=== PATIENT | female | born 1995 | race Caucasian/White ===

== ENCOUNTER 2022-09-13 17:09 | Inpatient (IN) | payer BC ==
[2022-09-13] MEDS ORDERED: Sodium Chloride 0.9% 10 ML Syringe FLUSH PRN ×2 (18:07→18:18)
[2022-09-13] MEDS ORDERED: Lactated Ringers 1,000 ML IV SCH ×2 (18:15→18:30)
[2022-09-13] MEDS ORDERED: Nalbuphine 10 MG/0.5 ML Syringe IVPUSH PRN (18:18)
[2022-09-13] MEDS ORDERED: Misoprostol 25 MCG (1/4 of 100 MCG) Tab PO ONE (19:20)
[2022-09-13] MEDS ORDERED: Oxytocin/Lactated Ringers 10 UNIT/1,000 ML BAG IV SCH (23:30)
[2022-09-14] MEDS ORDERED: Ropivacaine 0.2% PF 2 MG/ML 20 ML SDV ONE
[2022-09-14] MEDS: Ondansetron 4 MG/2 ML SDV IVPUSH PRN ×2 (07:04→18:55)
[2022-09-14] MEDS: Sodium Chloride 0.9% 10 ML Syringe FLUSH SCH ×2 (07:22→10:41)
[2022-09-14] MEDS ORDERED: fentaNYL 100 MCG/2 ML SDV EPIDUR PRN (07:48)
[2022-09-14] MEDS ORDERED: ePHEDrine 50 MG/ML SDV IVPUSH PRN ×2 (07:48→21:40)
[2022-09-14] MEDS ORDERED: diphenhydrAMINE 50 MG/ML SDV IVPUSH PRN ×3 (07:48→21:40)
[2022-09-14] MEDS: Bupivacaine/fentaNYL/NS 100 ML Bag EPIDUR PRN ×2 (07:53→13:18)
[2022-09-14] MEDS ORDERED: Ampicillin 2 GM in Sodium Chloride 0.9% 100 ML IV SCH (18:30)
[2022-09-14] MEDS ORDERED: Morphine PF 1 MG/ML Amp ONE (19:09)
[2022-09-14] MEDS ORDERED: Phenylephrine 1% 10 MG/ML SDV ONE (19:09)
[2022-09-14] MEDS ORDERED: Oxytocin 10 Units/1 ML SDV ONE ×2 (19:09→19:50)
[2022-09-14] MEDS ORDERED: Ondansetron 4 MG/2 ML SDV ONE (19:09)
[2022-09-14] MEDS ORDERED: Carboprost Tromethamine 250 MCG/1 ML Amp ONE (19:26)
[2022-09-14] MEDS ORDERED: Clindamycin Phosphate in D5W 900 MG in Premix Bag 1 BAG IV SCH ×2 (19:30)
[2022-09-14] MEDS ORDERED: Misoprostol 200 MCG Tab ONE (20:00)
[2022-09-14] MEDS ORDERED: Ondansetron 4 MG/2 ML SDV IVPUSH PRN (20:15)
[2022-09-14] MEDS ORDERED: Meperidine 50 MG/ML Vial IVPUSH PRN (20:15)
[2022-09-14] MEDS ORDERED: fentaNYL 100 MCG/2 ML SDV IVPUSH PRN (20:15)
[2022-09-14] MEDS ORDERED: Ketorolac 30 MG/ML SDV IVPUSH ONE (20:16)
[2022-09-14] MEDS ORDERED: Docusate Sodium 100 MG Cap PO PRN (21:40)
[2022-09-14] MEDS ORDERED: Dextrose 5%-Lactated Ringers 1,000 ML IV SCH (21:40)
[2022-09-14] MEDS ORDERED: Naloxone 0.4 MG/ML SDV IVPUSH PRN (21:40)
[2022-09-14] MEDS ORDERED: Acetaminophen/oxyCODONE 325-5 MG Tab PO PRN (21:40)
[2022-09-14] MEDS ORDERED: Ondansetron 4 MG/2 ML SDV IV PRN (21:40)
[2022-09-15] MEDS: Ampicillin 2 GM in Sodium Chloride 0.9% 100 ML IV SCH ×3 (00:29→12:32)
[2022-09-15] MEDS ORDERED: Ketorolac 30 MG/ML SDV IVPUSH SCH (02:00)
[2022-09-15] MEDS: Ketorolac 30 MG/ML SDV IVPUSH SCH ×3 (03:38→15:42)
[2022-09-15] MEDS: Clindamycin Phosphate in D5W 900 MG in Premix Bag 1 BAG IV SCH ×4 (03:39→11:53)
[2022-09-15] MEDS: Ibuprofen 600 MG Tab PO PRN (21:24)
[2022-09-15] MEDS: Acetaminophen/oxyCODONE 325-5 MG Tab PO PRN (21:25)
[2022-09-16] MEDS: Acetaminophen/oxyCODONE 325-5 MG Tab PO PRN ×2 (03:30→08:30)
[2022-09-16] MEDS: Ibuprofen 600 MG Tab PO PRN ×2 (03:31→11:07)
== END 2022-09-16 12:00 | disposition home or self-care (01) | DRG 540 ==
LOC: JD.OBCHECK 17:09 → JD.OB 17:15 → JD.OBCHECK 18:55 → JD.OB 18:56 → OBSVTOIN 09-14 19:32 → JD.OB 09-14 19:33
PROVIDERS: ADMIT Family Medicine; ATTEND Family Medicine
PROC: 10D00Z1 Extraction of Products of Conception, Low, Open Approach (ICD-10-PCS; principal; 2022-09-14)
DX: O42.02 Full-term premature rupture of membranes, onset of labor within 24 hours of rupture (principal); O41.1230 Chorioamnionitis, third trimester, not applicable or unspecified; O62.2 Other uterine inertia; Z37.0 Single live birth; Z3A.39 39 weeks gestation of pregnancy
CPT/HCPCS: 01968; 36415; 51702; 59025; 85025; 85027; 86592; 86850; 86900; 86901; 94762; A9270-GY; J0290; J1580; J1885; J2175; J2274; J2370; J2405; J2590; J2795; J3490; J7120; J7121

== ENCOUNTER 2024-05-25 04:16 | Inpatient (IN) | payer BC ==
[~2024-05-25 04:16] MED LIST: Bupivacaine 0.25% 10 ML SDV ONE; Lidocaine 1.5% with EPINEPHrine 1:200,000 5 ML Amp ONE
[2024-05-25] MEDS ORDERED: Lidocaine 1% 50 ML MDV INJECT PRN (06:27)
[2024-05-25] MEDS ORDERED: Sodium Chloride 0.9% 10 ML Syringe FLUSH PRN (06:27)
[2024-05-25] MEDS ORDERED: Nalbuphine 10 MG/1 ML Vial IVPUSH PRN (06:27)
[2024-05-25 06:50] LABS: BASOPHILS PERCENT AUTO 0.1 % (0.0-1.0); EOSINOPHILS ABSOLUTE AUTO 0.1 K/mm3 (0.0-0.4); EOSINOPHILS PERCENT AUTO 0.6 % (0.0-6.0); HEMATOCRIT 37.2 % (37.0-47.0); HEMOGLOBIN 11.7 gm/dl (12.0-16.0); LYMPHOCYTES ABSOLUTE AUTO 2.4 K/mm3 (1.0-4.8); LYMPHOCYTES PERCENT AUTO 23.2 % (24.0-44.0); MEAN CORPUSCULAR HEMOGLOBIN 26.5 pg (28.0-32.0); MEAN CORPUSCULAR HGB CONC 31.5 g/dl (32.0-36.0); MEAN CORPUSCULAR VOLUME 84.4 fl (83.0-99.0); MEAN PLATELET VOLUME 10.6 fl (9.4-12.3); MONOCYTES ABSOLUTE AUTO 0.6 K/mm3 (0.0-0.8); MONOCYTES PERCENT AUTO 5.5 % (0.0-8.0); NEUTROPHILS ABSOLUTE AUTO 7.3 K/mm3 (1.8-7.7); NEUTROPHILS PERCENT AUTO 69.6 % (41.0-71.0); PLATELET COUNT,PLT 220 K/mm3 (150-400); RED BLOOD CELL COUNT 4.41 M/mm3 (4.10-5.30); WHITE BLOOD CELL COUNT,WBC 10.46 K/mm3 (3.9-11.3)
[2024-05-25] MEDS ORDERED: ePHEDrine 50 MG/ML SDV IVPUSH PRN (07:32)
[2024-05-25] MEDS ORDERED: diphenhydrAMINE 50 MG/ML SDV IVPUSH PRN (07:32)
[2024-05-25] MEDS: fentaNYL 100 MCG/2 ML SDV EPIDUR PRN (07:35)
[2024-05-25] MEDS: Bupivacaine/fentaNYL/NS 100 ML Bag EPIDUR PRN (07:36)
[2024-05-25] MEDS: Lactated Ringers 1,000 ML IV SCH (07:50)
[2024-05-25] MEDS: Oxytocin/0.9 % Sodium Chloride 30 UNIT/500 ML BAG IV SCH ×2 (12:55→15:46)
[2024-05-25] MEDS: Ondansetron 4 MG/2 ML SDV IVPUSH PRN (12:59)
[2024-05-25] MEDS ORDERED: Docusate Sodium 100 MG Cap PO PRN (16:21)
[2024-05-25] MEDS: Ibuprofen 600 MG Tab PO SCH (17:31)
[2024-05-25] MEDS: Benzocaine/Menthol 20%-0.5% Spray 78 GM Cannister TOP PRN (17:32)
[2024-05-25] MEDS: Witch Hazel Medicated Pads 40/Jar TOP PRN (17:32)
[2024-05-25] MEDS: Acetaminophen 325 MG Tab PO PRN (17:32)
[2024-05-25] MEDS: Sodium Chloride 0.9% 10 ML Syringe FLUSH SCH (21:12)
== END 2024-05-26 18:53 | disposition home or self-care (01) | DRG 560 ==
LOC: JD.OBCHECK 04:16 → JD.OB 04:24 → JD.OBCHECK 06:28 → JD.OB 06:28 → OBSVTOIN 15:42 → JD.OB 15:43
PROVIDERS: ADMIT Family Medicine; ATTEND Family Medicine
PROC: 10E0XZZ Delivery of Products of Conception, External Approach (ICD-10-PCS; principal; 2024-05-25)
PROC: 10907ZC Drainage of Amniotic Fluid, Therapeutic from Products of Conception, Via Natural or Artificial Opening (ICD-10-PCS; 2024-05-25)
PROC: 3E0R3BZ Introduction of Anesthetic Agent into Spinal Canal, Percutaneous Approach (ICD-10-PCS; 2024-05-25)
PROC: 00HU33Z Insertion of Infusion Device into Spinal Canal, Percutaneous Approach (ICD-10-PCS; 2024-05-25)
DX: O34.219 Maternal care for unspecified type scar from previous cesarean delivery (principal); Z37.0 Single live birth; Z3A.37 37 weeks gestation of pregnancy
CPT/HCPCS: 01967; 36415; 51701; 59025; 59409; 85025; 86592; 86850; 86900; 86901; A9270-GY; J0665; J2405; J3010; J3490; J7120; J7999